=== PATIENT | male | born 1985 | race Caucasian/White ===

== ENCOUNTER 2021-07-19 14:48 | Emergency (ER) | payer OTHER ==
[2021-07-19 15:05] VITALS: BP 132/86
--- NOTE | 2021-07-19 15:57 | ED Physician Documentation ---
History of Present Illness - Stated complaint Stated Complaint: CONGESTION,EAR PX,COUGH - Chief complaint Chief Complaint: Resp - History obtained from History obtained from: Patient - Additonal information Additional information: Patient comes emergency department chief complaint of rhinorrhea, sinus congestion, and I might have been exposed to Covid". Patient states that the daughter of one of his coworkers had Covid and even though his coworker was vaccinated, he is coming to work. Patient is afraid that his coworker may have actually had a subclinical case of Covid and given it to him. Patient denies any shortness of breath. He has a mild cough intermittently, but is also a smoker. No fevers or chills. No loss of taste or smell. No nausea or vomiting. No other complaints at this time. He did get the Moderna vaccine earlier this year. Review of Systems Ten Systems: 10 systems reviewed and negative Constitutional: reports: Reviewed and negative Eyes: reports: Reviewed and negative Ears: reports: Reviewed and negative Nose: reports: Rhinorrhea / runny nose, Congestion Throat: reports: Reviewed and negative Cardiac: reports: Reviewed and negative Respiratory: reports: Cough, Reviewed and negative GI: reports: Reviewed and negative : reports: Reviewed and negative Skin: reports: Reviewed and negative Musculoskeletal: reports: Reviewed and negative Neurologic: reports: Reviewed and negative Psychiatric: reports: Reviewed and negative Endocrine: reports: Reviewed and negative Immunocompromised: reports: Reviewed and negative PD PAST MEDICAL HISTORY - Present Medications Home Medications: Ambulatory Orders Medication Instructions Recorded Confirmed Albuterol Sulf [Ventolin Hfa 1 - 2 puffs INH Q4HR PRN #1 inhaler 07/19/21 Inhaler] - Allergies Allergies/Adverse Reactions: Allergies Allergy/AdvReac Type Severity Reaction Status Date / Time No Known Drug Allergies Allergy Verified 07/19/21 15:05 - Social History Does the pt smoke?: Yes Smoking Status: Current every day smoker PD ED PE NORMAL - Vitals Vital signs reviewed: Yes - General General: Alert and oriented X 3, No acute distress, Well developed/nourished - HEENT HEENT: Atraumatic, PERRL, EOMI, Moist mucous membranes - Neck Neck: Supple, no meningeal sign - Cardiac Cardiac: RRR, No murmur, Strong equal pulses - Respiratory Respiratory: No respiratory distress, Other (Mild expiratory rhonchi throughout bilateral rider.) - Derm Derm: Normal color, Warm and dry, No rash - Extremities Extremities: No deformity, No edema - Neuro Neuro: Alert and oriented X 3, belt splicer 2-12 intact, Normal speech - Psych Psych: Normal mood, Normal affect Results - Vitals Vitals: Vital Signs - 24 hr 07/19/21 14:56 Temperature 36.9 C Heart Rate 100 Respiratory 15 Rate Blood Pressure 132/86 H O2 Saturation 96 Oxygen O2 Source Room air PD MEDICAL DECISION MAKING - ED course Complexity details: considered differential, d/w patient ED course: The patient was swabbed for Covid. He was advised to quarantine until results are back and negative. Is been given an albuterol inhaler prescription. We have discussed the usual indications for return. Departure - Departure Disposition: 01 Home, Self Care Clinical Impression: Upper respiratory infection Qualifiers: URI type: unspecified viral URI Qualified Code(s): J06.9 - Acute upper respirat ory infection, unspecified Condition: Stable Instructions: ED Viral Syndrome Prescriptions: Albuterol Sulf [Ventolin Hfa Inhaler] 1 - 2 puffs INH Q4HR PRN #1 inhaler PRN Reason: Shortness Of Air/Wheezing Comments: You have a Covid test pending. You need to self quarantine until the results is done and negative. The results should be done in 48 to 72 hours. We will call with a positive result but the fastest way to get a negative result for confirmation is to go to the hospital website at [email or web address], click on the "my [employer]" tab and sign up for the patient portal. If any friends or family get sick and would like to have a Covid test done, but not have signs or symptoms that would necessitate being hospitalized, we encourage testing through our coronavirus swabbing station. Please call [phone] to schedule an appointment.
== END 2021-07-19 16:03 | disposition home or self-care (01) ==
LOC: ED 14:48
DX: J06.9 Acute upper respiratory infection, unspecified (principal); B97.89 Other viral agents as the cause of diseases classified elsewhere; Z20.822 Contact with and (suspected) exposure to COVID-19; F17.200 Nicotine dependence, unspecified, uncomplicated
CPT/HCPCS: 99283